=== PATIENT | female | born 1960 | race Caucasian/White ===

== ENCOUNTER → 2018-07-11 | Outpatient (CLI) | payer OTHER ==
[~2018-07-11] MED LIST: LISINOPRIL-HCT1 EACH PO; PREDNISONE10 MG PO; SINGULAIR10 MG PO; XANAX0.25 MG PO; ZEGERID PO
--- NOTE | 2018-07-11 14:23 | Diagnostic Imaging Report ---
EXAM: CT Chest, Abdomen WITHOUT contrast INDICATION: ^[id number] ^[id number] ^ENLARGED PULMONARY OUTFLOW TRACT COMPARISON: None. TECHNIQUE: Chest, abdomen were scanned utilizing a multidetector helical scanner from the lung apex to the pubic symphysis without administration of IV contrast. Coronal and sagittal reformations were obtained. Routine protocol was performed. IV CONTRAST: None. ORAL CONTRAST: None RADIATION DOSE: Total DLP: 798.6 mGy*cm Estimated effective dose: (DLP x 0.015 x size factor) mSv COMPLICATIONS: None FINDINGS: LINES and TUBES: None. LUNGS AND AIRWAYS: The lungs are unremarkable. Airways are normal. PLEURA: The pleural spaces are clear. HEART AND MEDIASTINUM: The thyroid gland is normal. No mediastinal, hilar or axillary lymphadenopathy. The heart is normal in size. There is no pericardial effusion. 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 No Kommerell diverticulum. Lipomatous hypertrophy of the interatrial septum. The thoracic aorta is otherwise unremarkable. The pulmonary arteries are normal in caliber. HEPATOBILIARY: No focal hepatic lesions. No biliary ductal dilation. GALLBLADDER: Multiple 2 to 9 mm calcified gallstones. No wall thickening. SPLEEN: No splenomegaly. PANCREAS: No focal masses or ductal dilatation. ADRENALS: Thickening of the left adrenal gland without discrete nodule. The right adrenal gland is unremarkable. KIDNEYS/URETERS: No hydronephrosis. No cystic or solid mass lesions. 2 mm nonobstructing calcified stone in the inferior pole of the right kidney on coronal image 78. GI TRACT: No abnormal distention, wall thickening, or evidence of bowel obstruction of the partially visualized bowel. LYMPH NODES: Multiple nonspecific noncalcified up to 0.6 cm aortocaval and mesenteric lymph nodes. For example this is better seen on coronal image 78. VESSELS: Unremarkable. PERITONEUM / RETROPERITONEUM: No free air or fluid. BONES: Unremarkable. SOFT TISSUES: Unremarkable. IMPRESSION: 1. 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 2. Normal size of the pulmonary arteries. 3. Cholelithiasis. 4. Nonobstructing right nephrolithiasis. Signed by: Dr. Teena Mcgee M.D. on 07/11/2018 2:20 PM
== END ==
LOC: CT 12:58
PROVIDERS: ATTEND Family Medicine
DX: R10.9 Unspecified abdominal pain (principal); J98.4 Other disorders of lung; K80.20 Calculus of gallbladder without cholecystitis without obstruction; N20.0 Calculus of kidney
CPT/HCPCS: 71250; 74150